=== PATIENT | female | born 1980 | race Caucasian/White ===

== ENCOUNTER → 2020-05-24 15:30 | Outpatient (CLI) | payer BC, SELFPAY ==
--- NOTE | ~2020-05-24 | MM_ITS ---
EXAMINATION: MM scrn syed implant BI w polly HISTORY: Screening mammogram TECHNIQUE: Craniocaudal and mediolateral oblique 3-D tomosynthesis images with implant displacement a nd synthetic 2-D images were generated. Craniocaudal and mediolateral oblique views of the breasts wi thout implant displacement were obtained using full field digital mammography. CAD analysis was submi tted and interpreted. COMPARISON: None, baseline BREAST PARENCHYMAL COMPOSITION: There are scattered areas of fibroglandular density. FINDINGS: RIGHT BREAST: An asymmetry is present in the posterior third of the breast best appreciated 3 cm from the nipple just below the nipple axis on the implant displaced mediolateral oblique view. LEFT BREAST: There is no evidence of suspicious mass, calcification, or architectural distortion to s uggest malignancy. IMPRESSION: 1. Right breast asymmetry. 2. Additional mammographic views and possible breast ultrasound are recommended to evaluate for malig linda and establish a baseline given that this is the first mammographic examination. BI-RADS Category 0: Incomplete: Needs additional imaging evaluation. Reviewed, dictated and finalized at location A. IMPRESSION: 1. Right breast asymmetry. 2. Additional mammographic views and possible breast ultrasound are recommended to evaluate for malignancy and establish a baseline given that this is the fir st mammographic examination. BI-RADS Category 0: Incomplete: Needs additional imaging evaluation.
== END ==
PROVIDERS: PCP Family Medicine; Visit Provider Nurse Practitioner
DX: Z12.31 Encounter for screening mammogram for malignant neoplasm of breast (principal)
CPT/HCPCS: 77063; 77067

== ENCOUNTER → 2020-06-09 09:01 | Outpatient (CLI) | payer BC, SELFPAY ==
--- NOTE | ~2020-06-09 | MMUS_ITS ---
EXAMINATION: MM diagnostic mammo implant RT, US breast RT complete HISTORY: Follow-up right breast asymmetry TECHNIQUE: Additional 3-D tomosynthesis images of the right breast were performed and synthetic 2-D i mages were generated. CAD analysis was submitted and interpreted. High resolution right complete sant[address] st ultrasound was performed. COMPARISON: 05/24/2020 BREAST PARENCHYMAL COMPOSITION: The breasts are heterogenously dense, which may obscure small masses FINDINGS: MAMMOGRAPHIC FINDINGS: There is a 3 mm mass in the upper aspect of the right breast on medial lateral and MLO implant displa marley views of the right breast. There are no suspicious calcifications or architectural distortion. ULTRASOUND: Complete right breast ultrasound: At 11:00, 6 cm from the nipple, there is a 3 mm cyst. Implant is no charan. No suspicious masses to suggest malignancy. IMPRESSION: 1. No evidence for malignancy in the right breast. Benign findings. 2. Routine yearly screening mammogram and regular clinical breast examination are recommended. BI-RADS Category 2: Benign finding(s). Reviewed, dictated and finalized at location A. IMPRESSION: 1. No evidence for malignancy in the right breast. Benign findings. 2. Routine yearly screening mammogram and regular clinical breast examination a re recommended. BI-RADS Category 2: Benign finding(s).
== END ==
PROVIDERS: Visit Provider Obstetrics & Gynecology Gynecology
DX: R92.8 Other abnormal and inconclusive findings on diagnostic imaging of breast (principal)
CPT/HCPCS: 76641; 77065

== ENCOUNTER → 2022-04-04 10:28 | Outpatient (CLI) | payer BC, SELFPAY ==
--- NOTE | ~2022-04-04 | US_ITS ---
EXAMINATION: US transvaginal DATE: 04/04/2022 11:10 INDICATION: Abnormal uterine bleeding Comparison:No prior studies for comparison. TECHNIQUE: Multiple transabdominal and endovaginal sonographic images of the pelvis performed. FINDINGS: The uterus measures 9.5 x 5 x 5.5 cm. There is a uterine fibroid measuring 1.8 cm at the fu ndus. There are additional fibroids, largest measuring 2.4 cm anteriorly. The endometrial complex mis sures 8 mm. The right ovary measures 3.8 x 2.3 x 3.7 cm and the left ovary measures 2.4 x 1.6 x 1.5 cm. There is a complicated cyst of the right ovary measuring 2.1 cm. There are small follicles in each ovary. Norm al doppler signal in both ovaries. There is no free fluid in the pelvis. There are no abnormal masses seen on either side. IMPRESSION: 1. Enlarged uterus containing multiple fibroids, largest measuring up to 2.4 cm. 2: Complicated 2.1 cm right ovarian cyst. Reviewed, dictated and finalized at location A. IMPRESSION: 1. Enlarged uterus containing multiple fibroids, largest measuring up to 2.4 cm . 2: Complicated 2.1 cm right ovarian cyst.
--- NOTE | ~2022-04-04 | MM_ITS ---
EXAMINATION: MM scrn syed implant BI w polly HISTORY: Screening mammogram, family history of breast cancer in her mother. TECHNIQUE: Craniocaudal and mediolateral oblique 3-D tomosynthesis images with implant displacement a nd synthetic 2-D images were generated. Craniocaudal and mediolateral oblique views of the breasts wi thout implant displacement were obtained using full field digital mammography. CAD analysis was submi tted and interpreted. COMPARISON: 06/09/2020, 05/24/2020 BREAST PARENCHYMAL COMPOSITION: There are scattered areas of fibroglandular density. FINDINGS: There is no evidence of suspicious mass, calcification, or architectural distortion to sugg est malignancy in either breast. There has been no suspicious interval change. IMPRESSION: 1. No mammographic evidence of malignancy. 2. Recommend routine screening mammography in one year. BI-RADS Category 1: Negative Reviewed, dictated and finalized at location A.
== END ==
PROVIDERS: PCP Family Medicine; Visit Provider Nurse Practitioner
DX: Z12.31 Encounter for screening mammogram for malignant neoplasm of breast (principal); N93.8 Other specified abnormal uterine and vaginal bleeding
CPT/HCPCS: 76830; 77063; 77067

== ENCOUNTER 2022-06-10 02:08 | Day surgery (SDC) | payer BC, SELFPAY ==
[2022-05-28 10:14] VITALS: BMI 22.4
--- NOTE | 2022-05-28 10:24 | PC.NURSE ---
Report to the Outpatient Waiting Room, entrance under the green pavilion located off [facility], at time 0915 on date _06/10/22_. OR Time: 1115. Time changes happen often and if your time is changed the preop area will call you the afternoon before. - You and your visitor will be asked to self-screen and do not enter if you have any COVID symptoms. - Only one visitor and NO children visitors are allowed at this time. - The patient visitor is requested to leave or wait in car when not with patient due to restrictions. - A mask is required within the hospital. Patients may have clear liquids (water, carbonated beverages, clear teas, apple juice) until 3 hours prior to surgery with a maximum of 20 ounces. - No food from midnight until time of surgery - Infants may have breast milk until 4 hours before surgery, infant formula 6 hours prior to surgery. - Children will be allowed to drink immediately following surgery. If applicable, please bring a bottle or sippy cup to assist with drinking. Juice, water, soda, and popsicles are readily available. For infants on formula, please bring formula the day of surgery. Pacifiers are allowed. Take the following medications with a SIP of water the morning of surgery: _lexapro_ Medications to discontinue per physician Date to take last dose Please no make-up, nail khmer, hairspray, perfume, deodorant, or body powder the day of surgery. No jewelry (including any body piercings) or valuables the day of surgery, leave them at home. Please take a shower or bath the night before, or the morning of, surgery with an antibacterial soap. Wear comfortable, loose fitting clothing. Children are encouraged to wear pajamas. - Jewelry must be removed prior to entering the operating room. Rings and piercings that are not removed may be cut off. - The hospital will not accept responsibility for valuables. - Please leave all valuables, including medications, at home the day of surgery. If you are going home after surgery, a licensed sprinkler truck driver must drive you home. - NO public transportation without another adult. - We recommend that an adult stay with you for 24 hours following discharge. - We also recommend that you do not drive, make important decision, drink alcoholic beverages, or take any drugs that were not prescribed by your health care provider for at least 24 hours after your discharge time. For Pediatric surgeries, we recommend two adults accompany the child home (only one inside the building at this time). Follow any additional instructions given to you from your surgeon. If you or anyone in your household have experienced Covid symptoms in the past week, please notify your surgeon or the nurse liaison at the phone number below for possible testing. Telephone instructions given to _Breanna Aaron_and asked if any additional questions and then verbalized understanding. Patient advised to call surgeon office or pre surgery nurse liaison [phone] if any additional questions.
--- NOTE | 2022-06-10 08:17 | P.HP_ITS ---
History of Present Illness History of Present Illness Consent: Risks, benefits, and alternatives have been discussed and questions answered. Patient agrees to proceed with procedure. Chief complaint: menorrhaghia, fibroid Narrative: Breanna Aaron is a 41 year old female with irregular, heavy cycles. Pelvic ultrasound reveals multiple fibroids. It was recommended to proceed with further workup with D&C hysteroscopy. Risks of infection, bleeding, perforati on, and fluid imbalance were reviewed. The possibility of a 2nd procedure to remove fibroids if fluid imbalance occurs was reviewed. Possible pathology is also discussed. Patient voices understanding and agrees to proceed. Review of Systems Review of Systems: not repeated day of surgery; patient states no changes in status PMFSH Past Medical History Medical History (Updated 06/10/22 @ 08:21 by Kallie Barkley MD) Anxiety Calculus of kidney Elective x1 (normal spontaneous vaginal delivery) x3 Surgical History Surgical History (Updated 06/10/22 @ 08:20 by Kallie Barkley MD) H/O breast augmentation Hx of LASIK Family History Family History (Updated 03/22/16 @ 23:19 by DOCTOR UNKNOWN) Mother Family history of diabetes mellitus in first degree relative, Onset Age: 58 Father Family history of lymphoma Sibling Family history of malignant neoplasm of thyroid Social History Social History Smoking status: Never smoker Alcohol intake: never Substance use: never Living arrangements: with family Spiritual care concerns: No Meds Home Medications and Allergies Home Medications Medication Instructions Recorded Confirmed Type escitalopram oxalate 10 mg tablet See Rx Instructions .Route 01/16/22 05/28/22 Rx .COMPLEX #90 tabs Allergies Allergy/AdvReac Type Severity Reaction Status Date / Time No Known Allergies Allergy Mild Unverified 10/12/11 17:54 Exam Const: General: healthy appearing and alert Orientation/consciousness: patient oriented x3 Resp: Effort & Inspection: normal respiratory effort GI: GI Palp: Yes Soft to palpation, No Tenderness to palpation present (GI) and No Palpable mass present : External Female Exam: normal external appearance Speculum Exam - Vagina: normal appearance of the vagina and normal vaginal discharge Speculum Exam - Cervix: normal appearance of the cervix Bimanual exam- vagina & uterus: uterine size normal and consistency normal Bimanual Exam- Adnexa, other: normal adnexae and No adnexal tenderness Neuro: General: patient oriented x3 Assessment and Plan Assessment and plan (1) Menorrhagia: Code(s): N92.0 - Excessive and frequent menstruation with regular cycle Status: Acute Assessment and Plan: plan to proceed with D&C hysteroscopy possible MyoSure
--- NOTE | 2022-06-10 08:17 | WPDHPUPDATE1 ---
History and Physical Update Update Date/Time: 06/10/22 08:17 History and Physical has been reviewed, including an updated exam of the patient. There are NO changes in the patient's condition. Risks, benefits, and alternatives have been discussed and questions answered. Patient agrees to proceed with procedure.
[2022-06-10] MEDS: ACETAMINOPHEN 500 MG TABLET 1000 MG PO (09:50)
[2022-06-10] MEDS: LACTATED RINGERS 1,000 ML 30 ML IV CONT (09:51)
[2022-06-10 10:04] VITALS: BP 106/52; PULSE 66; RESP 16; TEMP 36.8; O2SAT 100
--- NOTE | 2022-06-10 10:17 | P.PNAN_ITS ---
Anes - Initial Pre Proc Eval Procedure: Operation Date: 06/10/22 11:15 Proposed Procedures p Hysteroscopy, Dilation and Curettage, Possible Myosure - Kallie Barkley MD Date/Time: 06/10/22 10:17 Surgeon: Kallie Barkley MD Pre Op Diagnosis: menorrhaghia, fibroid Patient Data Age: 41 Gender: F Height: 1.65 m Weight: 67.35 kg Last Vital Signs Temp 36.8 C 06/10/22 10:04 Pulse 66 06/10/22 10:04 Resp 16 06/10/22 10:04 BP 106/52 L 06/10/22 10:04 Pulse Ox 100 06/10/22 10:04 O2 Del Method Room Air 06/10/22 10:04 Allergies Allergy/AdvReac Type Severity Reaction Status Date / Time No Known Allergies Allergy Mild Unverified 06/10/22 10:03 Home Medications Medication Instructions Recorded Confirmed Type escitalopram oxalate 10 mg tablet See Rx Instructions .Route 01/16/22 06/10/22 R x .COMPLEX #90 tabs Patient hx anesthesia problems: none Family hx anesthesia problems: none Results Review: All pre-operative results and documents have been reviewed as part of the pre- operative evaluation. PMFSH Past Medical History Medical History Anxiety Calculus of kidney Elective x1 (normal spontaneous vaginal delivery) x3 Surgical History Surgical History H/O breast augmentation Hx of LASIK Family History Family History Mother Family history of diabetes mellitus in first degree relative, Onset Age: 58 Father Family history of lymphoma Sibling Family history of malignant neoplasm of thyroid Social History Social History Smoking status: Never smoker Alcohol intake: never Substance use: never Living arrangements: with family Spiritual care concerns: No Anes - Eval Final PreProcedure Day of Procedure 06/10/22 10:17 Patient weight: normal Heart: regular rate and rhythm Lungs: clear to auscultation Airway: Mallampati scale class 1 Neurological: alert and oriented Last oral intake: >/= 8 hours ASA classification: II Emergent: no Anesthetic plan: proceed Anesthesia type and monitoring: general GIVS and standard monitoring Results Review: All pre-operative results and documents have been reviewed as part of the pre- operative evaluation. Informed Consent: The patient's anesthetic plan and its attendant risks and benefits were discussed with the patient/family/POA. Questions were solicited and answers provided to the satisfaction of the patient/family/POA.
[2022-06-10] MEDS: LIDOCAINE HCL 1% LOCAL INJ 20 ML VIAL 10 ML INFILTRATE (11:47)
--- NOTE | 2022-06-10 11:56 | W.PM.PROC2 ---
Procedure Note - Detailed Date of Procedure 06/10/22 Pre-op Diagnosis menorrhaghia, fibroid Post-op Diagnosis Same Procedure Performed D&C hysteroscopy Surgeon Kallie Barkley MD Anesthesia MAC and Local Findings uterus sounds to 8.5 cm and appears grossly normal Description of Procedure the patient is taken to the operating room and placed under anesthesia in the dorsal lithotomy position. She was prepped and draped in usual sterile fashion. [place] speculum was placed in the vagina and the cervix grasped on the anterior lip with a tenaculum. The cervix is injected in each quadrant with lidocaine. The uterus is sounded to 8.5cm. The cervix is serially dilated to an 8 Hegar. The diagnostic hysteroscope was placed with no abnormalities noted. The hysteroscope was removed and the sharp curette used to curette the endometrium until a good uterine cry was noted in all areas. Sponge, needle, and instrument counts are correct per the OR staff. Patient is awakened from anesthesia and taken to recovery room in stable condition. Estimated Blood Loss 5 Drains No Packing No Pathology Yes ( Endometrial curettings) Complications No immediate complications Condition Stable Disposition PACU
[2022-06-10 11:58] VITALS: BP 102/47; PULSE 55; RESP 12; O2SAT 97
[2022-06-10 12:20] VITALS: BP 99/58; PULSE 62; RESP 12
[2022-06-10 12:45] VITALS: BP 116/65; PULSE 51; RESP 12
== END 2022-06-10 12:58 | disposition home or self-care (01) ==
PROVIDERS: PCP Family Medicine; Visit Provider Obstetrics & Gynecology Gynecology
PROC: 0U5B8ZZ Destruction of Endometrium, Via Natural or Artificial Opening Endoscopic (ICD-10-PCS; CPT 58563; principal; 2022-06-10 11:15)
DX: N92.0 Excessive and frequent menstruation with regular cycle (principal); F41.9 Anxiety disorder, unspecified
CPT/HCPCS: 58558; 88305; A9270; J2250; J2704; J3010; J7120

== ENCOUNTER → 2023-07-24 11:51 | Outpatient (CLI) | payer BC, SELFPAY ==
--- NOTE | ~2023-07-24 | MM_ITS ---
EXAMINATION: MM scrn syed implant BI w polly HISTORY: Screening mammogram TECHNIQUE: Craniocaudal and mediolateral oblique 3-D tomosynthesis images with implant displacement a nd synthetic 2-D images were generated. Craniocaudal and mediolateral oblique views of the breasts wi thout implant displacement were obtained using full field digital mammography. CAD analysis was submi tted and interpreted. COMPARISON: 04/04/2022 bilateral implant screening mammogram 06/09/2020 diagnostic right mammogram and complete right breast ultrasound 05/24/2020 bilateral implant screening mammogram BREAST PARENCHYMAL COMPOSITION: The breasts are heterogeneously dense, which may obscure small masses . FINDINGS: Status post bilateral mammoplasty. There is no evidence of suspicious mass, calcification, or architectural distortion to suggest malignancy in either breast. There has been no suspicious inte rval change. IMPRESSION: 1. No mammographic evidence of malignancy. 2. Recommend routine screening mammography in one year. BI-RADS Category 1: Negative Reviewed, dictated and finalized at location A. OFF SAW OPERATOR
== END ==
PROVIDERS: PCP Obstetrics & Gynecology Gynecology; Visit Provider Obstetrics & Gynecology Gynecology
DX: Z12.31 Encounter for screening mammogram for malignant neoplasm of breast (principal)
CPT/HCPCS: 77063; 77067